=== PATIENT | female | born 1960 | race Caucasian/White ===

== ENCOUNTER 2016-08-04 11:09 | Emergency (ER) | payer MEDICARE, MEDICAID ==
[2016-08-04 11:34] VITALS: TEMP 98.4; BMI 28.8
[2016-08-04] MEDS ORDERED: ONDANSETRON HCL 4 MG/2 ML VIAL IV ONE (12:00)
[2016-08-04] MEDS ORDERED: HYDROmorphone 1 MG INJECTION IV ONE (12:00)
[2016-08-04 12:08] LABS: AUTOMATED BASOPHIL 0.7 % (0-2); AUTOMATED EOSINOPHIL 7.5 % (0-5); AUTOMATED LYMPH 30.2 % (17-44); AUTOMATED MONOCYTE 8.3 % (3-10); AUTOMATED NEUTROPHIL 53.3 % (45-76); MPV 7.9 fL (7.4-10.4)
[2016-08-04 12:09] LABS: ALL NEG? NO
[2016-08-04 12:12] LABS: RBC/URINE 0-2 (0-5); WBC/URINE 0-2 (0-5)
[2016-08-04 12:13] LABS: LEUKOCYTES/URINE NEG (NEGATIVE); NITRITE/URINE NEG (NEGATIVE); URINE OCCULT BLOOD NEG (NEG/TRACE)
[2016-08-04 12:16] LABS: MDMA* NEG (NEGATIVE); METHAMPHETAMINES NEG (NEGATIVE)
[2016-08-04 12:17] LABS: OXYCODONE NEG (NEGATIVE)
[2016-08-04 12:19] LABS: BLOOD UREA NITROGEN 15 MG/DL (7-17); CALCIUM 9.3 MG/DL (8.4-10.2); CALCULATED OSMOLALITY 272 MOs/Kg (270-290); CHLORIDE 104 mEq/L (98-107); GLUCOSE 93 MG/DL (70-99); SODIUM LEVEL 141 mEq/L (137-146)
--- NOTE | 2016-08-04 13:24 | EDPRACDOC ---
- General Information Chief Complaint: Abdominal Pain Stated Complaint: ABDOMINAL PAIN Time Seen by Provider: 08/04/16 11:41 Information Source: Patient Mode Of Arrival: Car Home Medications: Home Medications Amlodipine [Norvasc] 10 mg PO DAILY 05/27/13 Lisinopril [Zestril] 20 mg PO DAILY 05/27/13 Oxycodone Immediate Release [Oxy-Ir] 10 mg PO QID 05/27/13 Oxymorphone HCl [Opana ER] 20 mg PO BID 05/27/13 Venlafaxine HCl [Effexor Xr] 150 mg PO DAILY 05/27/13 Dicyclomine HCl [Bentyl] 10 mg PO Q6H #28 cap 08/04/16 Ibuprofen 600 mg PO TID #20 tablet 08/04/16 Ondansetron HCl [Zofran] 4 mg PO Q6H PRN #20 tab 08/04/16 Allergies/Adverse Reactions: Allergies Allergy/AdvReac Type Severity Reaction Status Date / Time No Known Allergies Allergy Verified 08/04/16 11:34 - History of Present Illness Onset: 3 WKS HPI: PT PRESENTS TODAY WITH INTERMITTENT RLQ PAIN X 3 WEEKS. PT STATES THAT THE PAINS ARE SHARP, BUT THEY "COME AND GO", SO SHE IGNORED THE PAIN UNTIL LAST NIGHT. PT BELIEVES THAT THE PAIN FEELS LIKE A KIDNEY STONE OR UTI, EVEN THOUGH SHE HAS NO HISTORY. LAST NIGHT, THE PAIN BECAME MUCH MORE SEVERE AND PT STATES SUBJECTIVE FEVER WITH N/V. SEEN AT AND SENT HERE FOR FURTHER. PMH OF APPENDECTOMY, PARTIAL HYSTERECTOMY. Pain Location: Reports: RLQ Pain Context: Reports: Spontaneous Pain Severity: Severe Pain Quality: Reports: Sharp, Stabbing Pain Radiation: Reports: No Radiation : No Control Method: Reports: Hysterectomy Modifying Factors: improves with: Nothing Female Associated Signs & Symptoms: Reports: Nausea, Vomiting, Fever Oral Intake: Normal Urinary Output: Normal ED Past Medical History - History Reviewed Yes Nurses notes reviewed and agree except as marked - Patient Medical History Cardiac History: Reports: Hypertension Surgical History: Reports: Hysterectomy - Social Medical History Smoking Status: Never smoker EDM Review of Systems - Review of Systems ROS Negative Except as Marked: Yes All systems reviewed and were negative except as marked Constitutional: Fever Respiratory: No Symptoms Reported Cardiovascular: No Symptoms Reported Gastrointestinal: Nausea, Pain, Vomiting Genitourinary: Flank Pain Neurological: No Symptoms Reported Musculoskeletal: No Symptoms Reported Integumentary: No Symptoms Reported - Physical Exam Constitutional: Alert (Awake), No apparent distress Oriented to: Time, Person, Place Last recorded Vital Signs: Last Vital Signs Temp 98.4 F 08/04/16 11:31 Pulse 73 08/04/16 12:04 Resp 16 08/04/16 12:04 BP 149/83 08/04/16 12:04 Pulse Ox 93 08/04/16 12:04 Oxygen Pulse Oxygen Saturation 93 O2 Device Room Air Oxygen Flow Rate Fraction of Inspired Oxygen ( FIO2) - HEENT Head: Normal Eye Exam: Normal Neck: Normal, Denies Pain, Midline - Respiratory/Cardiovascular Respiratory: Normal - CTA Cardiovascular: Normal - GI Auscultation: Normal Palpation: Normal Tenderness: Moderate, RLQ Le's Sign: Negative - Musculoskeletal Back: Normal Extremities: Normal - Integumentary Skin: Normal Lymphatics: Normal - Neurologic Cerebellar: Normal Mood Description: Normal Thought: Coherent Perception: Normal - Results 08/04/16 11:51 08/04/16 11:51 WBC 6.9 xk/uL (3.8-10.8) 08/04/16 11:51 RBC 4.46 xM/uL (4.20-5.40) 08/04/16 11:51 Hgb 13.6 g/dL (12.0-16.0) 08/04/16 11:51 Hct 39.7 % (36-47) 08/04/16 11:51 MCV 89 fL (81-99) 08/04/16 11:51 MCH 30.5 pg (27-32) 08/04/16 11:51 MCHC 34.2 g/dl (33-36) 08/04/16 11:51 RDW 13.6 % (11.5-14.5) 08/04/16 11:51 Plt Count 296 xk/uL (130-400) 08/04/16 11:51 MPV 7.9 fL (7.4-10.4) 08/04/16 11:51 Neut % (Auto) 53.3 % (45-76) 08/04/16 11:51 Lymph % (Auto) 30.2 % (17-44) 08/04/16 11:51 Rincon % (Auto) 8.3 % (3-10) 08/04/16 11:51 Eos % (Auto) 7.5 % (0-5) H 08/04/16 11:51 Baso % (Auto) 0.7 % (0-2) 08/04/16 11:51 Absolute Neuts (auto) 3.66 xk/uL (1.7-8.2) 08/04/16 11:51 Absolute Lymphs (auto) 2.07 xk/uL (0.65-4.75) 08/04/16 11:51 Sodium 141 mEq/L (137-146) 08/04/16 11:51 Potassium 4.1 mEq/L (3.5-5.1) 08/04/16 11:51 Chloride 104 mEq/L (98-107) 08/04/16 11:51 Carbon Dioxide 26 mMOL/L (22-33) 08/04/16 11:51 Anion Gap 15 mEq/L (8-16) 08/04/16 11:51 BUN 15 MG/DL (7-17) 08/04/16 11:51 Creatinine 0.80 MG/DL (0.52-1.04) 08/04/16 11:51 Estimated GFR (MDRD) > 60 mL/min (>=60) 08/04/16 11:51 Glucose 93 MG/DL (70-99) 08/04/16 11:51 Calculated Osmolality 272 MOs/Kg (270-290) 08/04/16 11:51 Calcium 9.3 MG/DL (8.4-10.2) 08/04/16 11:51 Total Bilirubin 0.6 MG/DL (0.2-1.3) 08/04/16 11:51 AST 38 IU/L (14-36) H 08/04/16 11:51 ALT 46 IU/L (9-52) 08/04/16 11:51 Alkaline Phosphatase 105 IU/L (38-126) 08/04/16 11:51 Total Protein 8.0 G/DL (6.3-8.2) 08/04/16 11:51 Albumin 4.5 G/DL (3.5-5.0) 08/04/16 11:51 Urine Color Yellow 08/04/16 12:00 Urine Clarity Clear 08/04/16 12:00 Urine pH 5.0 (5.0-8.0) 08/04/16 12:00 Ur Specific Bronson 1.035 (1.003-1.035) 08/04/16 12:00 Urine Protein Neg (NEG/TRACE) 08/04/16 12:00 Urine Glucose (UA) Neg (NEGATIVE) 08/04/16 12:00 Urine Ketones Neg (NEGATIVE) 08/04/16 12:00 Urine Occult Blood Neg (NEG/TRACE) 08/04/16 12:00 Urine Nitrite Neg (NEGATIVE) 08/04/16 12:00 Urine Bilirubin Neg (NEGATIVE) 08/04/16 12:00 Urine Urobilinogen 0.2 MG/DL (0-1) 08/04/16 12:00 Ur Leukocyte Esterase Neg (NEGATIVE) 08/04/16 12:00 Urine RBC 0-2 (0-5) 08/04/16 12:00 Urine WBC 0-2 (0-5) 08/04/16 12:00 Ur Epithelial Cells 2+ 08/04/16 12:00 Urine Bacteria Few (NEG/FEW) 08/04/16 12:00 Hyaline Casts 2-5 (0-2) H 08/04/16 12:00 Urine Mucus Mod (NEG/OCC) H 08/04/16 12:00 Urine Opiates Screen *positive* (NEGATIVE) H 08/04/16 12:00 Ur Oxycodone Screen Neg (NEGATIVE) 08/04/16 12:00 Urine Methadone Screen Neg (NEGATIVE) 08/04/16 12:00 Ur Barbiturates Screen Neg (NEGATIVE) 08/04/16 12:00 Ur Tricyclics Screen Neg (NEGATIVE) 08/04/16 12:00 Ur Phencyclidine Scrn Neg (NEGATIVE) 08/04/16 12:00 Ur Amphetamines Screen Neg (NEGATIVE) 08/04/16 12:00 U Methamphetamines Scrn Neg (NEGATIVE) 08/04/16 12:00 Urine MDMA Screen Neg (NEGATIVE) 08/04/16 12:00 U Benzodiazepines Scrn Neg (NEGATIVE) 08/04/16 12:00 Urine Cocaine Screen Neg (NEGATIVE) 08/04/16 12:00 Ur THC Screen Neg (NEGATIVE) 08/04/16 12:00 Lab Results 08/04/16 08/04/16 08/04/16 12:00 12:00 11:51 WBC 6.9 RBC 4.46 Hgb 13.6 Hct 39.7 MCV 89 MCH 30.5 MCHC 34.2 RDW 13.6 Plt Count 296 MPV 7.9 Neut % (Auto) 53.3 Lymph % (Auto) 30.2 Rincon % (Auto) 8.3 Eos % (Auto) 7.5 H Baso % (Auto) 0.7 Absolute Neuts (auto) 3.66 Absolute Lymphs (auto) 2.07 Sodium Potassium Chloride Carbon Dioxide Anion Gap BUN Creatinine Estimated GFR (MDRD) Glucose Calculated Osmolality Calcium Total Bilirubin AST ALT Alkaline Phosphatase Total Protein Albumin Urine Color Yellow Urine Clarity Clear Urine pH 5.0 Ur Specific Bronson 1.035 Urine Protein Neg Urine Glucose (UA) Neg Urine Ketones Neg Urine Occult Blood Neg Urine Nitrite Neg Urine Bilirubin Neg Urine Urobilinogen 0.2 Ur Leukocyte Esterase Neg Urine RBC 0-2 Urine WBC 0-2 Ur Epithelial Cells 2+ Urine Bacteria Few Hyaline Casts 2-5 H Urine Mucus Mod H Urine Opiates Screen *positive* H Ur Oxycodone Screen Neg Urine Methadone Screen Neg Ur Barbiturates Screen Neg Ur Tricyclics Screen Neg Ur Phencyclidine Scrn Neg Ur Amphetamines Screen Neg U Methamphetamines Scrn Neg Urine MDMA Screen Neg U Benzodiazepines Scrn Neg Urine Cocaine Screen Neg Ur THC Screen Neg 08/04/16 11:51 WBC RBC Hgb Hct MCV MCH MCHC RDW Plt Count MPV Neut % (Auto) Lymph % (Auto) Rincon % (Auto) Eos % (Auto) Baso % (Auto) Absolute Neuts (auto) Absolute Lymphs (auto) Sodium 141 Potassium 4.1 Chloride 104 Carbon Dioxide 26 Anion Gap 15 BUN 15 Creatinine 0.80 Estimated GFR (MDRD) > 60 Glucose 93 Calculated Osmolality 272 Calcium 9.3 Total Bilirubin 0.6 AST 38 H ALT 46 Alkaline Phosphatase 105 Total Protein 8.0 Albumin 4.5 Urine Color Urine Clarity Urine pH Ur Specific Bronson Urine Protein Urine Glucose (UA) Urine Ketones Urine Occult Blood Urine Nitrite Urine Bilirubin Urine Urobilinogen Ur Leukocyte Esterase Urine RBC Urine WBC Ur Epithelial Cells Urine Bacteria Hyaline Casts Urine Mucus Urine Opiates Screen Ur Oxycodone Screen Urine Methadone Screen Ur Barbiturates Screen Ur Tricyclics Screen Ur Phencyclidine Scrn Ur Amphetamines Screen U Methamphetamines Scrn Urine MDMA Screen U Benzodiazepines Scrn Urine Cocaine Screen Ur THC Screen Decision Time to Discharge: 13:57 - Departure Disposition: Home Condition: Stable Final Diagnosis: Abdominal pain Instructions: Acute Abdominal Pain (ED) Education/Counseling Given To: Patient Education/Counseling Given Regarding: Diagnosis, Treatment, Follow Up Referrals: Freddy Kirby PA [Primary Care Provider] - One Week José Antonio Arguello MD [Staff Physician] - One Week Prescriptions: Dicyclomine HCl [Bentyl] 10 mg PO Q6H #28 cap Ibuprofen 600 mg PO TID #20 tablet Ondansetron HCl [Zofran] 4 mg PO Q6H PRN #20 tab PRN Reason: Nausea/Vomiting Additional Instructions: BRAT DIET AND FOLLOW UP WITH PCP OR [facility]STR[facility] FOR FURTHER.
--- NOTE | 2016-08-04 13:33 | DIRPT ---
CLINICAL DATA: Right flank pain starting yesterday EXAM: CT ABDOMEN AND PELVIS WITHOUT CONTRAST TECHNIQUE: Multidetector CT imaging of the abdomen and pelvis was performed following the standard protocol without IV contrast. COMPARISON: None. FINDINGS: The lung bases are unremarkable. Bilateral breast implants are noted. Sagittal images of the spine are unremarkable. Unenhanced liver shows no biliary ductal dilatation. No calcified gallstones are noted within gallbladder. Abdominal aorta is unremarkable. Unenhanced pancreas, spleen and adrenal glands are unremarkable. Unenhanced kidneys are symmetrical in size. No nephrolithiasis. No hydronephrosis or hydroureter. No small bowel obstruction. No ascites or free air. No adenopathy. Moderate stool noted in right colon and transverse colon. No pericecal inflammation. The patient is status post appendectomy. Some stool noted in descending colon. No distal colonic obstruction. No colitis or diverticulitis. The patient is status post hysterectomy. No calcified ureteral calculi are noted. Urinary bladder is under distended. No inguinal adenopathy. No destructive bony lesions are noted within pelvis. The terminal ileum is unremarkable. IMPRESSION: 1. No nephrolithiasis. No hydronephrosis or hydroureter. 2. Status post appendectomy. No pericecal inflammation. Moderate stool noted in right colon and transverse colon. 3. Status post hysterectomy. 4. No small bowel or colonic obstruction. No evidence of diverticulitis or colitis. Electronically Signed By: Aakash Greenwood M.D. On: 08/04/2016 13:30
[2016-08-04 14:03] VITALS: BP 139/72; PULSE 89
== END 2016-08-04 14:25 | disposition home or self-care (01) ==
LOC: ED 11:09
DX: R10.9 Unspecified abdominal pain (principal)
CPT/HCPCS: 36415; 74176; 80053; 80307; 81001; 85025; 96374; 96375; 99283; J1170; J2405